=== PATIENT | female | born 1970 | race Two or more races ===

== ENCOUNTER → 2025-02-27 | Outpatient (CLI) | payer MEDICAID, SELFPAY ==
--- NOTE | 2025-02-27 10:25 | XR_ITS ---
Examination: Bilateral wrists 6 views TECHNIQUE: AP oblique lateral each wrist total 6 views Date and time: February 27, 2025 11:11 AM INDICATIONS: Bilateral wrist pain finger pain 6 months FINDINGS: Prominent osteopenia Bilateral mild narrowing radiocarpal joints Bilateral mild to moderate osteoarthritis first carpometacarpal joints No fractures No erosive arthritis IMPRESSION: Bilateral mild narrowing radiocarpal joints Bilateral mild to moderate osteoarthritis of the first carpometacarpal joints
--- NOTE | 2025-02-27 10:26 | XR_ITS ---
Examination: Bilateral hands, 6 views. Technique: AP, Oblique, Lateral each hand total 6 views Date and time of exam: February 27, 2025 1104 hours INDICATIONS: Bilateral hand and finger pain 6 months Findings: Bilateral mild narrowing radiocarpal joints Bilateral mild to moderate osteoarthritis first carpometacarpal joints Prominent osteopenia Bilateral mild osteoarthritis distal interphalangeal joints second through fifth digits and interphalangeal joints first digits No erosive arthritis No cortical bone destruction No avascular osteoporosis No fractures IMPRESSION: Bilateral mild narrowing radiocarpal joints Bilateral mild to moderate osteoarthritis first carpometacarpal joints Bilateral mild osteoarthritis distal interphalangeal joints second through fifth digits and interphalangeal joints first digits
== END | disposition home or self-care (01) ==
LOC: CDIM 10:19
PROVIDERS: PCP Physician Assistant Medical; Referring Provider Nurse Practitioner Gerontology; Visit Provider Nurse Practitioner Gerontology
DX: M25.832 Other specified joint disorders, left wrist (principal); M25.831 Other specified joint disorders, right wrist; M19.032 Primary osteoarthritis, left wrist; M19.031 Primary osteoarthritis, right wrist; M25.842 Other specified joint disorders, left hand; M25.841 Other specified joint disorders, right hand; M18.0 Bilateral primary osteoarthritis of first carpometacarpal joints; M19.042 Primary osteoarthritis, left hand; M19.041 Primary osteoarthritis, right hand
CPT/HCPCS: 73110; 73130